=== PATIENT | male | born 1980 | race Caucasian/White ===

== ENCOUNTER → 2022-02-08 10:49 | Outpatient (CLI) | payer BC, SELFPAY ==
--- NOTE | 2022-02-08 | DI.RAD.S_ITS ---
PROCEDURE: XR HIP W PEL IF DONE LT 2V INDICATIONS: Other sprain of left hip, initial encounter TECHNIQUE: AP pelvis with lateral view(s) of the left hip(s). COMPARISON: None. FINDINGS: Bones: No fractures or dislocations. Pelvic ring appears intact. No suspicious bony lesions. Minimal to mild bilateral hip joint degenerative narrowing. Soft tissues: The visualized bowel gas pattern is normal. No suspicious soft tissue calcifications. 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 Dictated by: María Elena Alvarez M.D. on 02/08/2022 at 17:33 Approved by: María Elena Alvarez M.D. on 02/08/2022 at 17:34
== END ==
PROVIDERS: Referring Provider Chiropractor; Visit Provider Chiropractor
DX: S73.192A Other sprain of left hip, initial encounter (principal)
CPT/HCPCS: 73502